=== PATIENT | male | born 1945 | race Caucasian/White ===

== ENCOUNTER → 2019-05-31 | Outpatient (CLI) | payer MEDICARE, OTHER ==
[2016-04-27 10:25] VITALS: BP 131/68
[~2019-05-31] MED LIST: CLIN300C8 PO
--- NOTE | 2019-05-31 13:02 | CARD ---
MR#: [id number] Date of Study: 05/31/2019 Ordering Physician: JANETH JACKSON, Referring Physician: JANETH JACKSON, Sallie: Analia Black APPROVED REPORT EXAM: Two-dimensional and M-mode echocardiogram with Doppler and color Doppler. Other Information Quality : AverageHR: 82bpm Technically limited study due to body habitus. INDICATION Murmur 2D DIMENSIONS RVDd3.8 (2.9-3.5cm)Left Atrium(2D)3.1 (1.6-4.0cm) IVSd1.5 (0.7-1.1cm)Aortic Root(2D)2.7 (2.0-3.7cm) LVDd4.2 (3.9-5.9cm)LVOT Diameter2.0 (1.8-2.4cm) PWd1.1 (0.7-1.1cm)LVDs2.2 (2.5-4.0cm) FS (%) 47.6 %SV62.1 ml LVEF(%)79.4 (>50%) Aortic Valve AoV Peak Bal.97.8cm/sAoV VTI56.3cm AO Peak GR.3.8mmHgLVOT Peak Bal.31.7cm/s LVOT VTI 16.56cmAO Mean GR.22mmHg FARHAT (VMAX)0.87ut3EZH (VTI)0.96cm2 Mitral Valve MV E Gmgswgda13.6cm/sMV DECEL [id number] MV A Gxbzkjov87.3cm/sMV JIL16ij E/A Ratio0.6MVA (PHT)2.52cm2 TDI E/Lateral E'8.8E/Medial E'13.0 Pulmonary Valve PV Peak Jschnlnq68.8cm/sPV Peak Grad.2mmHg Tricuspid Valve RAP [id number] Pulmonary Vein S1 Treyhqal61.9cm/sD2 Casjhqip80.4cm/s PVa [id number] LEFT VENTRICLE The left ventricle is normal size. There is mild to moderate septal left ventricular hypertrophy. The left ventricular systolic function is normal and the ejection fraction is within normal range. The E jection Fraction is 65-70%. There is grossly normal LV segmental wall motion. Technically difficult s tudy. Transmitral Doppler flow pattern is Grade I-abnormal relaxation pattern. RIGHT VENTRICLE The right ventricle is mildly dilated. The right ventricular systolic function is normal. ATRIA The left atrium size is normal. The right atrium size is normal. The interatrial septum is intact wit h no evidence for an atrial septal defect or patent foramen ovale as noted on 2-D or Doppler imaging. AORTIC VALVE The aortic valve is moderately calcified. There is significant leaflet restriction and calcification. The valve is not well visualized. Doppler and Color Flow revealed no significant aortic regurgitatio n. Aortic valve appears to be severely stenotic, based on doppler criteria, there is mild aortic sten osis. MITRAL VALVE The mitral valve is thickened but opens well. Mitral annular calcification is mild. There is no darlene l valve stenosis. Doppler and Color-flow revealed trace mitral regurgitation. TRICUSPID VALVE Not well visualized. Doppler and Color Flow revealed trace tricuspid regurgitation. There is no tricu spid valve stenosis. PULMONIC VALVE The pulmonic valve is not well visualized. Doppler and Color Flow revealed no pulmonic valvular regur gitation. There is no pulmonic valvular stenosis. GREAT VESSELS The aortic root is normal in size. The ascending aorta is normal in size. The IVC is normal in size a nd collapses >50% with inspiration. PERICARDIAL EFFUSION There is no pleural effusion. There is no evidence of significant pericardial effusion. Critical Notification Critical Value: No <Conclusion> The left ventricular systolic function is normal and the ejection fraction is within normal range. Th e Ejection Fraction is 65-70%. There is grossly normal LV segmental wall motion. Technically difficult study. Aortic valve appears to be severely stenotic, based on doppler criteria, there is mild aortic stenosi s. Signed by : Sabino Suarez, Electronically Approved : 05/31/2019 13:01:59
== END | disposition home or self-care (01) ==
LOC: ECHO 09:56
PROVIDERS: ATTEND Internal Medicine
DX: I08.0 Rheumatic disorders of both mitral and aortic valves (principal)
CPT/HCPCS: 93306

== ENCOUNTER → 2020-03-23 | Outpatient (CLI) | payer MEDICARE, OTHER ==
[2016-04-27 10:25] VITALS: BP 131/68
[~2020-03-23] MED LIST changes: +IOHEXOL 300 MG/ML 100ML VIAL. IV ONE
--- NOTE | 2020-03-23 12:22 | KCIC ---
EXAM: Abdomen and pelvis CT urogram with and without intravenous contrast. HISTORY: Gross hematuria. TECHNIQUE: Computed tomographic images of the abdomen and pelvis were obtained prior to and following the administration of intravenous contrast. Multiplanar reformatting was performed. *One or more of the following individualized dose reduction techniques were utilized for this examination: 1. Automated exposure control. 2. Adjustment of the mA and/or kV according to patient size. 3. Use of iterative reconstruction technique. COMPARISON: None. FINDINGS: Evaluation of the lower thorax demonstrates chronic interstitial changes with superimposed atelectasis. There is no infiltrate or pleural effusion. There is calcified atherosclerotic plaque involving the coronary arteries. There is calcification of the visualized portions of the aortic valve. There is hepatomegaly. No focal hepatic lesion is seen. There is cholelithiasis. The pancreas, spleen and adrenal glands are unremarkable. There is no evidence of nephroureterolithiasis or hydronephrosis. There is a 5 mm simple cyst along the lateral mid zone of the left kidney and 5 mm within the anterior upper pole the left kidney. No solid renal lesion is seen. There is nonopacification of the distal most right ureter due to peristalsis. No urothelial lesion is seen. The bladder is not well distended. There is no bowel obstruction. There is no abnormal bowel wall thickening. The aorta is normal in caliber. No pathologically enlarged lymph node is seen. There is edema within the ventral abdominal wall subcutaneous fat. There are degenerative changes involving the lumbar spine. There is grade 1 anterolisthesis with bilateral pars defects at L5-S1. IMPRESSION: 1. No evidence of nephroureterolithiasis, no evidence of a suspicious intrinsic urothelial lesion, and no obstructive uropathy. There are tiny incidental left renal cyst. Follow-up is not routinely recommended for simple renal cysts. 2. Cholelithiasis. 3. Hepatomegaly. 4. Grade 1 anterolisthesis with bilateral pars defects at L5-S1. Electronically signed by: Meseret Gu MD (03/23/2020 12:19 PM) [id number]
== END | disposition home or self-care (01) ==
LOC: KCIC CT 09:07
PROVIDERS: ATTEND Internal Medicine
DX: N28.1 Cyst of kidney, acquired (principal); K80.20 Calculus of gallbladder without cholecystitis without obstruction; R16.0 Hepatomegaly, not elsewhere classified; Z87.891 Personal history of nicotine dependence
CPT/HCPCS: 74178; 82565; Q9967

== ENCOUNTER → 2020-05-22 | Outpatient (CLI) | payer MEDICARE, OTHER ==
[2016-04-27 10:25] VITALS: BP 131/68
[~2020-05-22] MED LIST changes: -IOHEXOL 300 MG/ML 100ML VIAL. IV ONE
--- NOTE | 2020-05-22 11:14 | CARD ---
MR#: [id number] Date of Study: 05/22/2020 Ordering Physician: AIME MEHTA, Referring Physician: AIME MEHTA, Tech: Mariam Pepper APPROVED REPORT EXAM: Two-dimensional and M-mode echocardiogram with Doppler and color Doppler. Other Information Quality : AverageHR: 73bpm Technically limited study due to body habitus. INDICATION Aortic Valve Disease RISK FACTORS Hypertension Diabetes Asthma 2D DIMENSIONS RVDd4.5 (2.9-3.5cm)Left Atrium(2D)3.9 (1.6-4.0cm) IVSd1.3 (0.7-1.1cm)Aortic Root(2D)3.2 (2.0-3.7cm) LVDd4.5 (3.9-5.9cm)LVOT Diameter2.1 (1.8-2.4cm) PWd1.3 (0.7-1.1cm)LVDs2.8 (2.5-4.0cm) FS (%) 37.5 %SV61.1 ml LVEF(%)67.7 (>50%) Aortic Valve AoV Peak Bal.272.5cm/sAoV VTI61.9cm AO Peak GR.29.7mmHgLVOT Peak Bal.79.5cm/s LVOT VTI 19.05cmAO Mean GR.18mmHg FARHAT (VMAX)0.45zi7IUI (VTI)1.07cm2 Mitral Valve MV E Xupukhrf10.5cm/sMV DECEL [id number] MV A Obwfymoy21.9cm/sMV E Mean Gr.2mmHg MV [id number]/A Ratio0.8 MVA (PHT)3.08cm2 TDI E/Lateral E'10.0E/Medial E'13.2 Tricuspid Valve TR P. Fucbkvyq226fe/sTR Peak Gr.13mmHg Pulmonary Vein S1 Tdlqoqlk78.6cm/sD2 Otsacqrw65.9cm/s PVa [id number] LEFT VENTRICLE The left ventricle is normal size. There is mild to moderate concentric left ventricular hypertrophy. The left ventricular systolic function is normal and the ejection fraction is within normal range. T he Ejection Fraction is 60-65%. There is normal LV segmental wall motion. Transmitral Doppler flow pa ttern is Grade I-abnormal relaxation pattern. RIGHT VENTRICLE The right ventricle is mildly dilated. There is normal right ventricular wall thickness. The right ve ntricular systolic function is normal. ATRIA The left atrium size is normal. The right atrium is borderline dilated. The interatrial septum is int act with no evidence for an atrial septal defect or patent foramen ovale as noted on 2-D or Doppler i maging. AORTIC VALVE The aortic valve is heavily calcified and displays decreased opening. Doppler and Color Flow revealed no significant aortic regurgitation. Calculated aortic valve area is .95 cm2 with maximum pressure g radient of 40 mmHg and mean pressure gradient of 23 mmHg. Doppler and color-flow analysis revealed mi ld to moderate aortic stenosis but visually the valve appears severely stenotic. MITRAL VALVE The mitral valve is normal in structure and function. There is no evidence of mitral valve prolapse. There is no mitral valve stenosis. Doppler and Color Flow revealed no mitral valve regurgitation note d. TRICUSPID VALVE The tricuspid valve is normal in structure and function. Doppler and Color Flow revealed no tricuspid valve regurgitation noted. There is no tricuspid valve stenosis. PULMONIC VALVE The pulmonic valve is not well visualized. Doppler and Color Flow revealed no pulmonic valvular regur gitation. There is no pulmonic valvular stenosis. GREAT VESSELS The aortic root is normal in size. The IVC is normal in size and collapses >50% with inspiration. PERICARDIAL EFFUSION There is no evidence of significant pericardial effusion. Critical Notification Critical Value: No <Conclusion> The left ventricular systolic function is normal and the ejection fraction is within normal range. Th e Ejection Fraction is 60-65%. There is normal LV segmental wall motion. The aortic valve is heavily calcified and displays decreased opening. Calculated aortic valve area is .95 cm2 with maximum pressure gradient of 40 mmHg and mean pressure g radient of 23 mmHg. Doppler and color-flow analysis revealed mild to moderate aortic stenosis but vis ually the valve appears severely stenotic. Signed by : Sabino Suarez, Electronically Approved : 05/22/2020 11:13:48
== END ==
LOC: ECHO 07:50
PROVIDERS: ATTEND Internal Medicine Cardiovascular Disease
DX: I35.0 Nonrheumatic aortic (valve) stenosis (principal); I51.7 Cardiomegaly
CPT/HCPCS: 93306